=== PATIENT | female | born 1980 | race Caucasian/White ===

== ENCOUNTER 2024-09-26 14:51 | Outpatient (AMB) | payer OTHER, SELFPAY ==
--- NOTE | 2024-09-26 15:00 | HO.NEPHOV_ITS ---
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 She has H/O recurrent stones for close to 25 years. She had seen Urology and had undergone 24 hour urine collection as well as stone analysis. She recently thought she had a renal stone presented with flank pain which was radiating to right groin. Her UA at that time apparently showed blood in the urine as well as crystals. She was also diagnosed with UTI at that time and was treated with antibiotics. CT done during the ER visit showed minimally increase in size of a simple appearing right upper pole renal cyst. It also showed 2 mm non obstructing renal stone, mild splenomegaly as well as 3.3 cm simple right ovarian cyst. Her second daughter who is 18 years of age is also having cystine stone. She never has taken tiopronin. She did not have any active complaints at the time of this office visit [facility] Medical History (Updated 09/26/24 @ 15:20 by Neil Stanford MD) Throat cancer Nephrolithiasis Family History (Updated 09/26/24 @ 15:01 by Anastasiya Hastings MA) Father Heart disease Social History (Updated 09/26/24 @ 15:01 by Anastasiya Hastings MA) Alcohol intake: current Comment: Occasionally Patient Tobacco Use Status: Former Tobacco user Review of Systems Const All systems reviewed & are unremarkable except as noted in HPI and below Physical Exam Vital Signs: Last Vital Signs Pulse 74 09/26/24 15:03 BP 110/70 09/26/24 15:03 Pulse Ox 97 09/26/24 15:03 Oxygen Delivery Method Room Air 09/26/24 15:03 BMI result Body Mass Index 26.8 Const General: comfortable and no acute distress Orientation/consciousness: patient oriented x3 HEENT Head: Yes normocephalic Mouth: Normal oral and palatal mucosa present Eyes EOM: EOMs intact bilaterally Neck Neck: Yes supple Resp Auscultation: clear to auscultation bilaterally Cardio Jugular venous distension: no JVD Rate: regular rate GI Palpation (GI): Soft to palpation Auscultation: normal bowel sounds General: Yes no CVA tenderness Back/Spine/Pelvis Back: no CVA tenderness Skin General skin exam: no rashes or lesions noted Neuro General: patient oriented x3 and moves all extremities Extrem General: Yes no pedal edema Results Reviewed Nephrology Results: No Data to Display Assessment & Plan Assessment & Plan (1) Nephrolithiasis: Code(s): N20.0 - Calculus of kidney Category: Medical Plan She has recurrent cystine stones for last 25 years. Her daughter also has the sa me issue. She said that she had stone analysis as well as 24 hour urine studies. I ordered Urinary cystine excretion quantification in a 24-hour urine collection. (The normal rate of cystine excretion is 30 mg/day (0.13 mmol/day); by comparison, patients with cystinuria generally excrete more than 400 mg/day (1.7 mmol/day), and some excrete as much as 3600 mg/day (15 mmol/day). Cystine solubility increases by up to threefold in an alkaline urine but only if the urine pH is greater than 7. This degree of urinary alkalinization may require up to 3 to 4 mEq/kg per day of?potassium citrate taken in three or four divided doses as needed to achieve [id number]-fzhgs alkalization. In adults, starting doses of 20 mEq three times daily, doses should be adjusted (up to 3 to 4 mEq/kg per day) to maintain a target urine pH of greater than 7. To maintain an alkaline urine pH overnight, the last dose of?potassium citrate should be taken at bedtime. I have requested stone analysis results from the past. She is likely candidate for tiopronin in the future. If initiated, we shall check complete blood count, liver function tests, and spot urine qyeeamu-eb-wayrvvltrh ratio monitoring once within three months of initiating therapy, then every six months for one to two years, and at least yearly thereafter. All these have been explained in detail. Answered all questions. Further management is pending evolving data Orders: Orders Cystine 24Hr Urine Today N20.0 - Calculus of kidney Coding Level of Care Code New Pt Level 4 (18271) Diagnoses Nephrolithiasis N20.0
[2024-09-26 15:03] VITALS: BP 110/70; PULSE 74; O2SAT 97; BMI 26.8
--- OUTSIDE RECORDS SUMMARY | 2024-09-26 18:33 | XMS_ITS ---
Author Organization [facility] [employer] [facility] Address [address] [address] Care Team Providers Care Film Mounter Name Role Phone RAMANA HERNÁNDEZ Unavailable [phone] REASON FOR VISIT Annual ERGONOMICS TECHNICIAN Physical Encounters Encounter Location Date Provider Diagnosis [facility] [address] [address] 09/08/2023 RAMANA HERNÁNDEZ Encounter for gynecological examination (general) (routine) without abnormal findings Z01.419 ; Encounter for screening mammogram for malignant neoplasm of breast Z12.31 and Encounter for screening for infections with a predominantly sexual mode of transmission Z11.3 Assessments Encounter Date Diagnosis (ICD Code) Assessment Notes Treatment Notes Treatment Clinical Notes Section Notes 09/08/2023 Encounter for gynecological examination (general) (routine) without abnormal findings (ICD-10 - Z01.419) Discussed cervical cancer screening with either cytology alone every 3 years or high risk HPV co-testing every 5 years as per ASCCP guidelines. Advised continued annual pelvic exams. Patient encouraged to increase her level of exercise. SBE technique encouraged/tau ght. Patient reminded when annual mammogram is due. 09/08/2023 Encounter for screening mammogram for malignant neoplasm of breast (ICD-10 - Z12.31) 09/08/2023 Encounter for screening for infections with a predominantly sexual mode of transmission (ICD-10 - Z11.3) Plan Of Treatment Treatment Notes Assessment Notes Encounter for gynecological examination (general) (routine) without abnormal findings Discussed cervical cancer screening with either cytology alone every 3 years or high risk HPV co-testing every 5 years as per ASCCP guidelines. Advised continued annual pelvic exams. Patient encouraged to increase her level of exercise. SBE technique encouraged/taught. Patient reminded when annual mammogram is due. Pending Test Test Name Order Date MM Digital Screening Mammogram 3D 2023 Next Appt Details Follow Up: 1 Year, Reason: Y early Development Technologist Exam Progress Notes * WENDY GEORGEDOB:1980 ( 44 yo F)Acc No.[id number]:09/08/2023 Progress Note Patient:WENDY BANERJEE Provider:?RAMANA HERNÁNDEZ MD :1980???Age:43 Y???Sex:Female D ate:09/08/2023 Address:[address] [place], [place] [id number] Subjective: * Chief Complaints: * ???1. Annual ERGONOMICS TECHNICIAN Physical. * HPI: ???Constitutional:? 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 She is new to this practice, having received previous leather production worker care . She has been in state of health since her last exam. She has the following concerns: . Relationship status: for years. She is sexually active. Sexual partner(s): male. She does wish to have STI testing. Menses: Contraception: She does report vaginal dryness. She does have hot flashes/night sweats. The patient has had an abnormal pap smear within the last 5 years. Her most recent pap smear was . She has been diagnosed with breast cancer. She does have a family history of breast cancer. Her last mammogram was . The patient does exercise. She exercises x days/week by . * ROS:?Annual Development Technologist Exam ROS:?Bowel habit changes?denies.?Bladder symptoms?denies.?Vaginal discharge, unusual?denies.?Vaginal itch or odor?denies.?weight or appetite changes?denies.?Chest pains, SOB?denies.?depression?denies.?Breast:?Denies?Breast lump.?Denies?Nipple discharge.?Hematology:?Denies?Swollen glands.?Skin:?Patient denies?changing moles.?Psychiatric:?Denies?Anxiety.? * Medical History:?Malignant n eoplasm of tonsil, unspecified, Single subsegmental pulmonary embolism without acute cor pulmonale, Opioid abuse, in remission, Obsessive-compulsive disorder, unspecified, Malignant neoplasm of tonsil, unspecified. Objective: * Vitals:? * Examination: ???General Examination: ?GENERAL APPEARANCE:?in no acute distress, well developed, well nourished, executive vice president present in room.?HEAD:?normocephalic, atraumatic.?NECK/THYROID:?neck supple, full range of motion, thyroid normal.?LYMPH NODES:?no axillary or supraclavicular adenopathy.?SKIN:? normal, good turgor, no rashes, no suspicious lesions.?BREASTS:? normal, no dimpling, no discharge, no drainage, no masses palpable bilaterally, nontender.?ABDOMEN:? soft, non-tender, non distended without masses or hepatosplenomegay.?RECTAL:? normal tone, no masses palpable.?BACK:? no costovertebral angle tenderness.?FEMALE GENITOURINARY:?Vulva without lesions or masses, vagina pink without abnormal discharge, lesions or masses, cervix appears normal and is not tender to palpation, uterus is normal size, mobile, nontender and anteverted, ovaries are not palpable.?NEUROLOGIC:? alert and oriented, gait normal.?PSYCH:? alert, oriented, cognitive function intact, cooperative with exam, good eye contact, mood/affect full range, speech clear.? Assessment: * Assessment: 1.?Encounter for gynecologic al examination (general) (routine) without abnormal findings - Z01.419 (Primary)???2.?Encounter for screening mammogram for malignant neoplasm of breast - Z12.31???3.?Encounter for screening for infections with a predominantly sexual mode of transmission - Z11.3??? Plan: * Treatment: 2.?Encounter for screening m ammogram for malignant neoplasm of breast?Imaging: MM Digital Screening Mammogram 3D * Follow Up:?1 Year (Reason: Y early Development Technologist Exam) * Images: Billing Information: * Visit Code:? 32225 Preventive Care New Pt. Age 40-64. * Procedure Codes:? 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 She is new to this practice, having received previous leather production worker care . She has been in state of health since her last exam. She has the following concerns: . Relationship status: for years. She is sexually active. Sexual partner(s): male. She does wish to have STI testing. Menses: Contraception: She does report vaginal dryness. She does have hot flashes/night sweats. The patient has had an abnormal pap smear within the last 5 years. Her most recent pap smear was . She has been diagnosed with breast cancer. She does have a family history of breast cancer. Her last mammogram was . The patient does exercise. She exercises x days/week by . Examination Category Sub-Category Detail Notes Category Not es General Examination GENERAL APPEARANCE: in no ac kb distress, well developed, well nourished, executive vice president present in room HEAD: normocephalic, atrau matic NECK/THYROID: neck supple, full ra nge of motion, thyroid normal ABDOMEN: soft, non-tender, no n distended without masses or hepatosplenomegay NEUROLOGIC: alert and oriented, gait normal SKIN: normal, good turgor, no rashes, no suspicious lesions BACK: no costovertebral an gle tenderness BREASTS: normal, no dimpling, no discharge, no drainage, no masses palpable bilaterally, nontender LYMPH NODES: no axillary or supra clavicular adenopathy RECTAL: normal tone, no mass es palpable PSYCH: alert, oriented, cog nitive function intact, cooperative with exam, good eye contact, mood/affect full range, speech clear FEMALE GENITOURINARY: Vulva without lesi ons or masses, vagina pink without abnormal discharge, lesions or masses, cervix appears normal and is not tender to palpation, uterus is normal size, mobile, nontender and anteverted, ovaries are not palpable
--- OUTSIDE RECORDS SUMMARY | 2024-09-26 18:33 | XMS_ITS | Clinical Summary ---
Author Organization [facility] Address [address] [place] [address] Care Team Providers Care Professor Of Nursing Name Role Phone Unavailable Primary Care Provider Unavailabl e Source Comments PLEASE NOTE, if this patient is a minor, it may be UNLAWFUL to discuss sensitive information that is contained in these records (such as FAMILY PLANNING, MENTAL HEALTH or SUBSTANCE ABUSE) with the minor patient's parent or other person without the patient's specific authorization.[facility] Allergies Active Allergy Reactions Criticality Noted Date Comments Metoclopramide Hcl 08/17/2022 Medications gabapentin (NEURONTIN) 100 mg capsule 1 CAPSULE BY MOUTH 3 TIMES A DAY, TAKE WITH 300MG CAPSULE DIRECTED 06/16/2022 Active buprenorphine-n aloxone (SUBOXONE) 8-[address] under the tongue 07/23/2020 Active ELIQUIS 5 mg tab 05/31/2022 Active pilocarpine HCl (SALAGEN) 5 mg tablet Take 5 mg by mouth 04/26/2022 Active Active Problems Problem Noted Date Diagnosed Date Carcinoma of tonsil ([facility]) 08/17/2022 History of drug abuse ([facility]) 08/17/2022 Social History Tobacco Use Types Packs/Day Years Used Date Smoking Tobacco: Never Smokeless Tobacco: Never Tobacco Cessation:Counseling Given: Not Answered Social Connections Answer Date Recorded Connectedness 0 03/16/2024 Financial Resource Strain Answer Date R ecorded Financial Resource Strain 0 2022 Stress Answer Date Recorded Stress 0 08/17/2022 Physical Activity Answer Date Recorded Physical Activity 0 08/17/2022 Food Insecurity Answer Date Recorded Food 0 03/28/2024 Transportation Needs Answer Date Record ed Transportation 0 08/17/2022 Housing Stability Answer Date Recorded Housing 0 08/17/2022 Safety and Environment Answer Date Edin rded Safety 0 08/17/2022 Utilities Answer Date Recorded Utilities 0 08/17/2022 Employment Answer Date Recorded Stress 0 03/16/2024 Comments Unknown Sex and Gender Information Value Date Recorded Sex Assigned at Not on file Legal Sex Female 12:28 PM PDT Gender Identity Not on file Sexual Orientation Not on file Last Filed Vital Signs Vital Sign Reading Time Taken Comments Blood Pressure 115/73 10/19/2022 3:08 PM EDT Pulse 73 10/19/2022 3:08 PM EDT Temperature - - Respiratory Rate - - Oxygen Saturation - - Inhaled Oxygen Concentration - - Weight - - Height - - Body Mass Index - - Plan of Treatment Health Maintenance Due Date Last Done Comments Diabetes Screening 1982 HPV Screening 1982 Hepatitis C Screening 1982 Lipid Screening 1982 Pap + HPV 1982 Tobacco Screening 1982 HIV Screening 1997 Relationship Safety Screening/Counseling 1997 Imm-DTaP/Tdap/Td (1 - Tdap) 2001 Imm-Hepatitis B (1 of 3 - 19+ 3-dose series) 1 Cervical Cancer Screening 2003 Pap Smear 2003 Breast Cancer Screening (Mammogram) 2022 Dental Examination 08/19/2023 08/17/2022 Hypertension Screening (#1) 10/19/2023 Czh-PCNIM-60 ( season) 2024 Imm-Influenza (#1) 2024 05/28/2021 Alcohol and Drug Screen 07/03/2024 Depression Annual Screen 07/03/2024 Dental FMX/Pano 08/19/2027 08/17/2022 Cervical Ablation/Cold-Knife Conization Discontinued Cervical Cryotherapy Discontinued Colposcopy Discontinued Endometrial Biopsy Discontinued Excision/Leep Discontinued HPV Genotyping Discontinued Vaginal Pap Discontinued Vulvoscopy Discontinued Procedures Procedure Name Priority Date/Time Associated Diagnosis Comments PANORAMIC RADIOGRAPHIC IMAGE Routine 08/17/2022 11:00 AM EST Encounter for dental examination Full COMP ORAL EVALUATION - NEW/ESTABLISHED PATIENT Routine 08/17/2022 11:00 AM EST Encounter for dental examination from Last 3 Months or Most Recently Relevant to Health Maintenance Insurance [place] MED[place] DENT[place]
--- OUTSIDE RECORDS SUMMARY | 2024-09-26 18:33 | XMS_ITS | Patient Health Record ---
Author Organization [facility] [facility] Address [address] [place] [address] Care Team Providers Care Varnisher Apprentice Name Role Phone RAMANA HERNÁNDEZ Unavailable [phone] Reason For Referral No Information Problems Problem Type SNOMED Code ICD Code Onset Dates Problem Status W/U Status Risk Notes Problem Malignant tumor of tonsil (616964701) Malignant neoplasm of tonsil, unspecified (C09.9) Active confirmed Problem Obsessive-compul sive disorder (667867635) Obsessive-compul sive disorder, unspecified (F42.9) Active confirmed Problem Nondependent opioid abuse in remission (034032885) Opioid abuse, in remission (F11.11) Active confirmed Problem Single subsegmental pulmonary embolism without acute cor pulmonale (I26.93) Active confirmed Plan Of Treatment Pending Test Test Name Order Date MM Digital Screening Mammogram 3D 2022 MM Digital Screening Mammogram 3D 2023 Insurance Providers Payer Name Payer Address Payer Phone Subscriber Number Group Number Insured Name Patient Relationship to Insured Coverage Start Date Coverage End Date [facility] [address] [place] [address] DORISGAIL Self - patient is the insured Medical (General) History Medical History History ICD Code Malignant neoplasm of tonsil, unspecifie d C09.9 Single subsegmental pulmonary embolism w ithout acute cor pulmonale I26.93 Opioid abuse, in remission F11.11 Obsessive-compulsive disorder, unspecifi ed F42.9 Malignant neoplasm of tonsil, unspecifie d C09.9 Surgical History Surgery Date(Month/Year) Gastric Band Tonsillectomy (Left squamous cell carcin alma delia, HPV positive) 06/2021 EGD 08/2022 Hospitalization History Reason Date(Month/Year) Right pulmonary embolus 07/2021
--- OUTSIDE RECORDS SUMMARY | 2024-09-26 18:33 | XMS_ITS | Encounter Summary ---
Author Organization [facility] Address [address] [place] [address] Care Team Providers Care Director Of Accounting Name Role Phone Antonio Myers MD Primary Care Provider [phone] Reason for Referral * Imaging (Routine) - Authorized Specialty Diagnoses / Procedures Referred By Antonio vera Referred To Contact Radiology Diagnoses Encounter for screening mammogram for malignant neoplasm of breast Procedures MG Mammo Digital Screening w Antonio Morrison MD [address] [address] Phone: tel: fax: [address] [address] Phone: tel: Referral ID Status Reason Start Date Expiration Date V isits Requested Visits Authorized [id number] Authorized 08/27/2024 08/27/2025 1 1 Reason for Visit * Imaging (Routine) - Authorized Specialty Diagnoses / Procedures Referred By Antonio vera Referred To Contact Radiology Diagnoses Encounter for screening mammogram for malignant neoplasm of breast Procedures MG Mammo Digital Screening w Antonio Morrison MD 175 [facility] [address] [place] [address] Phone: tel: fax: [address] [address] Phone: tel: Referral ID Status Reason Start Date Expiration Date V isits Requested Visits Authorized [id number] Authorized 08/27/2024 08/27/2025 1 1 Encounter Details Date Type Department Care Team (Latest Contact Info) Description 09/23/2024 7:58 AM EDT - 09/23/2024 11:59 PM EDT [facility] [address] [phone] Encounter for screening mammogram for malignant neoplasm of breast Discharge Disposition: Home or Self Care Social History Tobacco Use Types Packs/Day Years Used Date Smoking Tobacco: Never Assessed Comments No Sex and Gender Information Value Date Recorded Sex Assigned at Not on file Legal Sex Female 2:44 PM EST Gender Identity Female 08/28/2024 10:26 AM EST Sexual Orientation Not on file documented as of this encounter Last Filed Vital Signs Vital Sign Reading Time Taken Comments Blood Pressure - - Pulse - - Temperature - - Respiratory Rate - - Oxygen Saturation - - Inhaled Oxygen Concentration - - Weight 62.1 kg (137 lb) 09/23/2024 8:08 AM EDT Height 160 cm (5' 3 ) 09/23/2024 8:08 AM EDT Body Mass Index 24.27 09/23/2024 8:08 AM EDT documented in this encounter Discharge Disposition Disposition Code Departure Means Destination Home or Self Care documented in this encounter Plan of Treatment Not on file documented as of this encounter Procedures Procedure Name Priority Date/Time Associated Diagnosis Comments MG MAMMO DIGITAL SCREENING W ALEXANDRO BILAT Routine 09/23/2024 8:20 AM EDT Encounter for screening mammogram for malignant neoplasm of breast documented in this encounter Results * MG Mammo Digital Screening w Alexandro bilat (09/23/2024 8:20 AM EDT) Anatomical Region Laterality Modality Breast Bilateral Mammography 09/24/2024 9:49 AM EDT Impressions 09/24/2024 9:52 AM EDT No mammographic evidence of malignancy. A negative mammogram in the presence of a clinically suspicious palpable abnormality does not preclude the possibility of malignancy or alter the indications for biopsy. PQRI CPT II 3342F Code 72538, 08695 PQRI 225 CPT II 7025F TISSUE DENSITY: There are scattered areas of fibroglandular density. (BI-RADS category B) IMPRESSION: Benign. BI-RADS CATEGORY: 1 - NEGATIVE RECOMMENDATION: Screening bilateral mammogram is recommended in 1 year. Mammo Location: [facility], [address] [place] [address] -------- FINAL REPORT -------- Dictated By: Yehuda Elaine Dictated Date: 09/24/2024 09:49 ET Assigned Physician: Yehuda Elaine Reviewed and Electronically Signed By: Yehuda Elaine Signed Date: 09/24/2024 09:52 ET Workstation ID: [id number] Transcribed By: Self Edit Transcribed Date: 09/24/2024 09:49 ET Narrative 09/24/2024 9:52 AM EDT CLINICAL: The patient is a 44 years Female presenting for baseline screening mammography. COMPARISON: None ?? TECHNIQUE: Full-field digital mammography of the breasts bilaterally consisting of tomosynthesis in MLO and CC projection is performed in the [employer] 2000-D unit. ??Computer aided detection utilizing the iCAD system was utilized. FINDINGS: The breasts are seen to be composed of a combination of fatty and fibroglandular elements. ??A few scattered benign calcifications are noted bilaterally. ??There is no suspicious cluster of microcalcifications, mass, or area of architectural distortion. There is no skin thickening or nipple retraction. Procedure Note Yehuda Elaine MD - 09/24/2024 CLINICAL: The patient is a 44 years Female presenting for baselinescreening mammography. COMPARISON: None TECHNIQUE: Full-field digital mammography of the breasts bilaterallyconsisting of tomosynthesis in MLO and CC projection is performed in the[employer] 2000-D unit. Computer aided detection utilizing the iCADsystem was utilized. FINDINGS: The breasts are seen to be composed of a combination of fattyand fibroglandular elements. A few scattered benign calcifications arenoted bilaterally. There is no suspicious cluster of microcalcifications,mass, or area of architectural distortion. There is no skin thickening ornipple retraction. IMPRESSION: No mammographic evidence of malignancy. A negative mammogram in the presence of a clinically suspicious palpableabnormality does not preclude the possibility of malignancy or alter theindications for biopsy. PQRI CPT II 3342F Code 09174, 80044 PQRI 225 CPT II 7025F TISSUE DENSITY: There are scattered areas of fibroglandular density.(BI-RADS category B) IMPRESSION: Benign. BI-RADS CATEGORY: 1 - NEGATIVE RECOMMENDATION: Screening bilateral mammogram is recommended in 1 year. Mammo Location: [facility], [facility], [address] [place] [address] -------- FINAL REPORT -------- Dictated By: Yehuda Elaine Dictated Date: 09/24/2024 09:49 ET Assigned Physician: Yehuda Elaine Reviewed and Electronically Signed By: Yehuda Elaine Signed Date: 09/24/2024 09:52 ET Workstation ID: [id number] Transcribed By: Self Edit Transcribed Date: 09/24/2024 09:49 ET Antonio Myers MD IMG BI PROCEDURES Final Result documented in this encounter Visit Diagnoses Diagnosis Encounter for screening mammogram for malignant neoplasm of breast documented in this encounter Care Teams Director Of Accounting Relationship Specialty Start Date End Date Antonio Myers MD [address] [place] [address] PCP - General Internal Medicine 08/27/24 documented as of this encounter
--- OUTSIDE RECORDS SUMMARY | 2024-09-26 18:33 | XMS_ITS | Encounter Summary ---
Author Organization [facility] Address [address] [place] [address] Care Team Providers Care Steam Crane Operator Name Role Phone Antonio Myers MD Primary Care Provider [phone] Reason for Visit * Reason Onset Date Comments Referral 09/19/2024 Encounter Details Date Type Department Care Team ([facility] st Contact Info) Description 09/19/2024 Telephone Internal Medicine - [place] 175 [facility] [address] [place] [phone] Antonio Myers MD 175 [facility] [address] [place] [address] Referral Social History Tobacco Use Types Packs/Day Years Used Date Smoking Tobacco: Never Assessed Comments Unknown Sex and Gender Information Value Date Recorded Sex Assigned at Not on file Legal Sex Female 2:44 PM EST Gender Identity Female 08/28/2024 10:26 AM EST Sexual Orientation Not on file documented as of this encounter Progress Notes * Radha Craig MA - 09/25/2024 10:24 AM EDT Documents were printed and faxed * Luz Brandon - 09/19/2024 12:51 PM EDT Please fax Demographic Referral from provider Copy of insurance Last office note TO: Dr. Neil Stanfrod [facility] [address] [place], [place] FAX: [phone] documented in this encounter Plan of Treatment Not on file documented as of this encounter Visit Diagnoses Not on filedocumented in this encounter Care Teams Steam Crane Operator Relationship Specialty Start Date End Date Antonio Myers MD [address] [place] [address] PCP - General Internal Medicine 08/27/24 documented as of this encounter
--- OUTSIDE RECORDS SUMMARY | 2024-09-26 18:33 | XMS_ITS | Encounter Summary ---
Author Organization [facility] Address [address] [place] [address] Care Team Providers Care Strategies Analyst Name Role Phone Antonio Myers MD Primary Care Provider [phone] Reason for Referral * Imaging (Routine) - Authorized Specialty Diagnoses / Procedures Referred By Antonio vera Referred To Contact Radiology Diagnoses Encounter for screening mammogram for malignant neoplasm of breast Procedures MG Mammo Digital Screening w Alexandro bilat Antonio Myers MD 175 [place] [address] Phone: tel: fax: [address] [phone] Phone: tel: Referral ID Status Reason Start Date Expiration Date V isits Requested Visits Authorized [id number] Authorized 08/27/2024 08/27/2025 1 1 * Imaging (Routine) - Authorized Specialty Diagnoses / Procedures Referred By Antonio vera Referred To Contact Radiology Diagnoses Encounter for osteoporosis screening in asymptomatic postmenopausal patient Procedures BD Bone Density DXA Axial w Vertebral Fx Asmt Antonio Myers MD 175 [facility] [address] [place] [address] Phone: tel: fax: [address] [phone] Phone: tel: Referral ID Status Reason Start Date Expiration Date V isits Requested Visits Authorized [id number] Authorized 08/27/2024 08/27/2025 1 1 Reason for Visit * Reason Onset Date Comments Results 08/27/2024 Encounter Details Date Type Department Care Team ([facility] Contact Info) Description 08/27/2024 Telephone Internal Medicine - [place] 175 [facility] [address] [place] [phone] Antonio Myers MD 175 [facility] [address] [place] [address] Results Social History Tobacco Use Types Packs/Day Years Used Date Smoking Tobacco: Never Assessed Comments Unknown Sex and Gender Information Value Date Recorded Sex Assigned at Not on file Legal Sex Female 2:44 PM EST Gender Identity Female 08/28/2024 10:26 AM EST Sexual Orientation Not on file documented as of this encounter Progress Notes * Antonio Myers MD - 08/27/2024 3:09 PM EST Mammogram and bone density ordered * Morales Benítez MA - 08/27/2024 1:[address] Myers please advise request below * Luz Brandon - 08/27/2024 9:18 AM EST Patient requests order to be placed : Baseline mammogram Bone density documented in this encounter Plan of Treatment Scheduled Orders Name Type Priority Associated Diagnoses Orde r Schedule BD Bone Density DXA Axial w Vertebral Fx Asmt Imaging Routine Encounter for osteoporosis screening in asymptomatic postmenopausal patient 1 Occurrences starting 08/27/2024 until 08/27/2025 documented as of this encounter Results * MG Mammo Digital [...] for biopsy. PQRI CPT II 3342F Code 75471, 96839 PQRI 225 CPT II 7025F TISSUE DENSITY: There are scattered areas of fibroglandular density. (BI-RADS category B) IMPRESSION: Benign. BI-RADS CATEGORY: 1 - NEGATIVE RECOMMENDATION: Screening bilateral mammogram is recommended in 1 year. Mammo Location: [facility], [facility], [address] [place] [address] -------- FINAL REPORT -------- Dictated By: Yehuda Elaine Dictated Date: 09/24/2024 09:49 ET Assigned Physician: Yehuda Elaine Reviewed and Electronically Signed By: Yehuda Elaine Signed Date: 09/24/2024 09:52 ET Workstation ID: [id number] Transcribed By: Self Edit Transcribed Date: 09/24/2024 09:49 ET Narrative 09/24/2024 9:52 AM EDT CLINICAL: The patient is a 44 years Female presenting for baseline screening mammography. COMPARISON: None ?? TECHNIQUE: Full-field digital mammography of the breasts bilaterally consisting of tomosynthesis in MLO and CC projection is performed in the [employer] 2000-D unit. ??Computer aided detection utilizing the [...] MLO and CC projection is performed in the[employer] 2000-D unit. Computer aided detection utilizing the [...] for biopsy. PQRI CPT II 3342F Code 42198, 64440 PQRI 225 CPT II 7025F TISSUE DENSITY: There are scattered areas of fibroglandular density.(BI-RADS category B) IMPRESSION: Benign. BI-RADS CATEGORY: 1 - NEGATIVE RECOMMENDATION: Screening bilateral mammogram is recommended in 1 year. Mammo Location: [facility], [facility], [address] [place] [address] -------- FINAL REPORT -------- Dictated By: Yehuda Elaine Dictated Date: 09/24/2024 09:49 ET Assigned Physician: Yehuda Elaine Reviewed and Electronically Signed By: Yehuda Elaine Signed Date: 09/24/2024 09:52 ET Workstation ID: [id number] Transcribed By: Self Edit Transcribed Date: 09/24/2024 09:49 ET Antonio Myers MD IMG BI PROCEDURES Final Result documented in this encounter Visit Diagnoses Diagnosis Adult general medical examination- Primary Unspecified general medical examination History of throat cancer Encounter for osteoporosis screening in asymptomatic postmenopausal patient Encounter for screening mammogram for malignant neoplasm of breast Encounter for screening mammogram for malignant neoplasm of breast documented in this encounter Care Teams Strategies Analyst Relationship Specialty Start Date End Date Antonio Myers MD [address] [place] [address] PCP - General Internal Medicine 08/27/24 documented as of this encounter
--- OUTSIDE RECORDS SUMMARY | 2024-09-26 18:33 | XMS_ITS | Clinical Summary ---
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 Max Daily Amount: 1 mg 30 tablet 05/13/20 24 025 Discontinued predniSONE (DELTASONE) 10 mg tablet Take 2 tabs PO daily for 3 days then 1 tab PO daily for 4 days 10 tablet 07/30/19 25 025 Discontinued amoxicillin-cl avulanate (AUGMENTIN) 875-125 mg per tablet Take 1 tablet by mouth every 12 (twelve) hours for 10 days. 20 each 09/06/19 25 025 oxyCODONE-acet aminophen (PERCOCET) 5-325 mg per tablet Take 1 tablet by mouth every 8 (eight) hours if needed for severe pain for up to 5 days. Max Daily Amount: 3 tablets 15 tablet 09/07/19 25 025 Discontinued oxyCODONE-acet aminophen (PERCOCET) 5-325 mg per tablet Take 1 tablet by mouth every 8 (eight) hours if needed for severe pain for up to 5 days. Max Daily Amount: 3 tablets 15 tablet 09/07/19 25 025 oxyCODONE (ROXICODONE) 5 mg immediate release tablet Take 1 tablet (5 mg total) by mouth every 8 (eight) hours if needed for severe pain for up to 3 days. Max Daily Amount: 15 mg 10 tablet 09/13/19 25 025 Discontinued oxyCODONE (ROXICODONE) 5 mg immediate release tablet Take 1 tablet (5 mg total) by mouth every 8 (eight) hours if needed for severe pain for up to 3 days. Max Daily Amount: 15 mg 10 tablet 09/13/19 25 025 Discontinued(Re order) oxyCODONE (ROXICODONE) 5 mg immediate release tablet Take 1 tablet (5 mg total) by mouth every 8 (eight) hours if needed for severe pain for up to 3 days. Max Daily Amount: 15 mg 10 tablet 09/13/19 25 025 Encounters Date Type Department Care Team Description 09/23/2024 7:58 AM EDT - 09/23/2024 11:59 PM EDT [facility] [address] [phone] Encounter for screening mammogram for malignant neoplasm of breast Discharge Disposition: Home or Self Care 09/19/2024 Telephone Internal Medicine [address] [phone] Antonio Myers MD 09/19/2024 Telephone Internal Medicine [address] [phone] Antonio Myers MD Referral 08/27/2024 [facility] [address] [phone] Antonio Myers MD Results from Last 3 Months Social History Tobacco Use Types Packs/Day Years Used Date Smoking Tobacco: Never Assessed Comments No Sex and Gender Information Value Date Recorded Sex Assigned at Not on file Legal Sex Female 2:44 PM EST Gender Identity Female 08/28/2024 10:26 AM EST Sexual Orientation Not on file Obstetrics History Para Term AB IAB SAB Ectopic Multiple Livin g Live Births 2 Last Filed Vital Signs Vital Sign Reading Time Taken Comments Blood Pressure - - Pulse - - Temperature - - Respiratory Rate - - Oxygen Saturation - - Inhaled Oxygen Concentration - - Weight 62.1 kg (137 lb) 09/23/2024 8:08 AM EDT Height 160 cm (5' 3 ) 09/23/2024 8:08 AM EDT Body Mass Index 24.27 09/23/2024 8:08 AM EDT Plan of Treatment Health Maintenance Due Date Last Done Comments DTaP,Tdap,and Td Vaccines (1 - Tdap) 2001 Cervical Cancer Screening: P ap Smear 2003 Hepatitis B Vaccines (2 of 3 - 19+ 3-dose series) 01/06/2017 12/09/2016 Pneumococcal Vaccine: Pediatrics (0 to 5 Years) and At-Risk Patients (6 to 64 Years) (2 of 2 - PPSV23) 10/07/2021 08/12/2021 Cholesterol Screening (Lipid Panel) 06/01/2022 Depression Screening 06/01/2022 HIV Screening 06/01/2022 Hepatitis C Screening 06/01/2022 Social Influencers of Health Screening 06/01/2022 COVID-19 Vaccine (4 - 2023-2 5 season) 2024 07/17/2021, 10/19/2020, 09/28/2020 Influenza Vaccine (#1) 2024 05/28/2021 Breast Cancer Screening 09/23/2026 09/23/2024 MMR Vaccines Aged Out 12/09/2016 No longer eligi ble based on patient's age to complete this topic HIB Vaccines Aged Out No longer eligi ble based on patient's age to complete this topic HPV Vaccines Aged Out No longer eligi ble based on patient's age to complete this topic Hepatitis A Vaccines Aged Out No long er eligible based on patient's age to complete this topic IPV Vaccines Aged Out No longer eligi ble based on patient's age to complete this topic Meningococcal ACWY Vaccine Aged Out N o longer eligible based on patient's age to complete this topic Meningococcal B Vacine Aged Out No lo nger eligible based on patient's age to complete this topic RSV Immunization Patients Under 20 months Aged Out No longer eligible b ased on patient's age to complete this topic Varicella Vaccines Aged Out No longer eligible based on patient's age to complete this topic Procedures Procedure Name Priority Date/Time Associated Diagnosis Comments MG MAMMO DIGITAL SCREENING W ALEXANDRO BILAT Routine 09/23/2024 8:20 AM EDT Encounter for screening mammogram for malignant neoplasm of breast [facility] URINE CULTURE TUBE Routine 09/05/2024 3:09 PM EST Urinary tract infection without hematuria, site unspecified URINALYSIS WITH REFLEX MICROSCOPIC AND CULTURE Routine 09/05/2024 3:09 PM EST Urinary tract infection without hematuria, site unspecified URINALYSIS WITH REFLEX MICROSCOPIC AND CULTURE Routine 09/05/2024 3:09 PM EST Urinary tract infection without hematuria, site unspecified CULTURE URINE Routine 09/05/2024 3:09 PM EST Urinary tract infection without hematuria, site unspecified from Last 3 Months Results * MG Mammo Digital Screening w [...] for biopsy. PQRI CPT II 3342F Code 59750, 31670 PQRI 225 CPT II 7025F TISSUE DENSITY: There are scattered areas of fibroglandular density. (BI-RADS category B) IMPRESSION: Benign. BI-RADS CATEGORY: 1 - NEGATIVE RECOMMENDATION: Screening bilateral mammogram is recommended in 1 year. Mammo Location: [facility], [address] [place] [address] -------- FINAL REPORT -------- Dictated By: Yehuda Elaine Dictated Date: 09/24/2024 09:49 ET Assigned Physician: Yehuda Elaine Reviewed and Electronically Signed By: Yehuda Elaine Signed Date: 09/24/2024 09:52 ET Workstation ID: [id number] Transcribed By: Self Edit Transcribed Date: 09/24/2024 09:49 ET Narrative 09/24/2024 9:52 AM EDT CLINICAL: The patient is a 44 years Female presenting for baseline screening mammography. COMPARISON: None ?? TECHNIQUE: Full-field digital mammography of the breasts bilaterally consisting of tomosynthesis in MLO and CC projection is performed in the [employer] Pencil[employer]he 2000-D unit. ??Computer aided detection utilizing the [...] MLO and CC projection is performed in the[employer] Senographe 2000-D unit. Computer aided detection utilizing the [...] for biopsy. PQRI CPT II 3342F Code 94193, 84108 PQRI 225 CPT II 7025F TISSUE DENSITY: There are scattered areas of fibroglandular density.(BI-RADS category B) IMPRESSION: Benign. BI-RADS CATEGORY: 1 - NEGATIVE RECOMMENDATION: Screening bilateral mammogram is recommended in 1 year. Mammo Location: [facility], [address] [place] [id number] -------- FINAL REPORT -------- Dictated By: Yehuda Elaine Dictated Date: 09/24/2024 09:49 ET Assigned Physician: Yehuda Elaine Reviewed and Electronically Signed By: Yehuda Elaine Signed Date: 09/24/2024 09:52 ET Workstation ID: [id number] Transcribed By: Self Edit Transcribed Date: 09/24/2024 09:49 ET Antonio Myers MD IM BI PROCEDURES Final Result * (ABNORMAL) Urinalysis with reflex microscopic and culture (09/05/2024 3:09 PM EST) Specific [place] Urine 1.029 1.003 - 1.030 LAB URINALYSIS - AUTOMATED METHOD 09/05/2024 4:58 PM [facility] pH, Urine 5.5 5.0 - 8.0 pH LAB URINALYSIS - AUTOMATED METHOD 09/05/2024 4:58 PM [facility] Leukocytes, Urine Large(A) Negative LAB URINALYSIS - AUTOMATED METHOD 09/05/2024 4:58 PM [facility] Nitrite, Urine Positive(A) Negative LAB URINALYSIS - AUTOMATED METHOD 09/05/2024 4:58 PM [facility] Protein, Urine 30(A) <=Trace mg/dL LAB URINALYSIS - AUTOMATED METHOD 09/05/2024 4:58 PM [facility] Glucose, Urine Negative Negative mg/dL LAB URINALYSIS - AUTOMATED METHOD 09/05/2024 4:58 PM [facility] Ketones, Urine Trace(A) Negative mg/dL LAB URINALYSIS - AUTOMATED METHOD 09/05/2024 4:58 PM [facility] Urobilinogen , Urine 1.0 0.2 - 1.0 mg/dL LAB URINALYSIS - AUTOMATED METHOD 09/05/2024 4:58 PM [facility] Bilirubin, Urine Negative Negative LAB URINALYSIS - AUTOMATED METHOD 09/05/2024 4:58 PM [facility] Blood, Urine Trace(A) Negative LAB URINALYSIS - AUTOMATED METHOD 09/05/2024 4:58 PM [facility] RBC, Urine 2.9 0 - 4 /HPF LAB URINALYSIS - AUTOMATED METHOD 09/05/2024 4:58 PM [facility] WBC, Urine 1,013.8(H) 0 - 4 /HPF LAB URINALYSIS - AUTOMATED METHOD 09/05/2024 4:58 PM [facility] Squamous Epithelial, Urine 31 0 - 60 /LPF LAB URINALYSIS - AUTOMATED METHOD 09/05/2024 4:58 PM [facility] Crystals, Urine Heavy Cystine crystals. /LPF 09/05/2024 4:58 PM [facility] Bacteria, Urine Many(A) Negative /HPF LAB URINALYSIS - AUTOMATED METHOD 09/05/2024 4:58 PM [facility] Hyaline Casts, Urine 5.4(H) 0 - 3 /LPF LAB URINALYSIS - AUTOMATED METHOD 09/05/2024 4:58 PM [facility] Urine Urine specimen obtained by clean catch procedure / Unknown Non-blood Collection / Unknown 09/05/2024 3:09 PM EST 09/05/2024 3:27 PM EST Antonio Myers MD LAB URINE ORDERABLES Final Resul t Performing Organization Address [facility] [place]/[facility]/ZIP Co de Phone Number [facility] [address] [place] [address], [place] [phone] * [facility] urine culture tube (09/05/2024 3:09 PM EST) Extra Tube Hold for add-ons. 09/05/2024 5:01 PM [facility] Comment:Auto resulted. Urine Urine specimen obtained by clean catch procedure / Unknown Non-blood Collection / Unknown 09/05/2024 3:09 PM EST 09/05/2024 3:27 PM EST Antonio Myers MD LAB URINE ORDERABLES Final Resul t Performing Organization Address City/[facility]/ZIP Co de Phone Number [facility] [address] [place] [address], [place] [phone] * (ABNORMAL) Culture urine (09/05/2024 3:09 PM EST) [facility] Signature Culture, Urine >100,000 CFU/mL Escherichia coli(A) DINO 09/07/2024 8:59 AM EST [facility] Urine Urine specimen obtained by clean catch procedure / Unknown Non-blood Collection / Unknown 09/05/2024 3:09 PM EST 09/05/2024 4:58 PM EST Narrative Organism Antibiotic Method Susceptibility Escherichia coli Amoxicillin/Clavulanate DINO <=2 ug/ml: Susceptible Escherichia coli Ampicillin/Sulbactam DINO <=2 ug/ml: Susceptible Escherichia coli Piperacillin/Tazobactam DINO <=4 ug/ml: Susceptible Escherichia coli Cefazolin (Urine) DINO <=1 ug/ml: Susceptible Escherichia coli Cefoxitin DINO <=4 ug/ml: Susceptible Escherichia coli Ceftazidime DINO <=0.5 ug/ml: Susceptible Escherichia coli Ceftriaxone DINO <=0.25 ug/ml: Susceptible Escherichia coli Cefepime DINO <=0.12 ug/ml: Susceptible Escherichia coli Meropenem DINO <=0.25 ug/ml: Susceptible Escherichia coli Amikacin DINO 2 ug/ml: Susceptible Escherichia coli Gentamicin DINO <=1 ug/ml: Susceptible Escherichia coli Ciprofloxacin DINO <=0.06 ug/ml: Susceptible Escherichia coli Levofloxacin DINO <=0.12 ug/ml: Susceptible Escherichia coli Nitrofurantoin DINO <=16 ug/ml: Susceptible Escherichia coli Trimethoprim/Sulfamethoxazole DINO <=20 ug/ml: Susceptible us Antonio Myers MD LAB MICROBIOLOGY - GENERAL ORDER TAMERA Final Result [facility] [address] [place] [address], [place] [phone] from Last 3 Months Insurance [employer] Care Teams Piece Cutter Relationship Specialty Start Date End Date Antonio Myers MD [address] [place] [phone] PCP - General Internal Medicine 08/27/24
--- OUTSIDE RECORDS SUMMARY | 2024-09-26 18:33 | XMS_ITS | Encounter Summary ---
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 [employer] Miner Name Role Phone Antonio Myers MD Primary Care Provider [phone] Encounter Details Date Type Department Care Team ([facility] st Contact Info) Description 09/19/2024 Telephone Internal Medicine - [place] [address] [facility] [address] [place] [phone] Antonio Myers MD [address] [facility] [address] [place] [address] Social History Tobacco Use Types Packs/Day Years Used Date Smoking Tobacco: Never Assessed Comments Unknown Sex and Gender Information Value Date Recorded Sex Assigned at Not on file Legal Sex Female 2:44 PM EST Gender Identity Female 08/28/2024 10:26 AM EST Sexual Orientation Not on file documented as of this encounter Progress Notes * Luz Brandon - 09/19/2024 12:55 PM EDT Referral Request: What insurance does the patient have today? [employer] Referrals cannot be processed if the insurance is not accurate. If the insurance listed above in red is NO BILLING INFORMATION FOUND FOR THIS ENCOUTNER The patients correct insurance must be obtained and registered in [facility] or their referral can not be processed. Is this a retro request? no. If yes for what date of service do you need the retro referral? not applicable Who is calling to request this referral? PATIENT If the caller is not the patient, what is their name? not applicable Ask the patient WHO referred them to this specialty: Patient saw at [facility] for the problem and was told if symptoms did not resolve or worsen they would refer them to this specialty FIRST and LAST NAME of SPECIALIST PATIENT is seeing: Dr. Neil Stanford What specialty is this? Kidney DIAGNOSIS Patient is being seen for (Not a body part or a procedure): Kidney Stone Have you seen this SPECIALIST for this PROBLEM/DX before? If YES, when? No Have you checked REVIEW or the APPT DESK to see if this referral has already been done or has visits left? yes Is this visit: Initial Visit Address of Specialist: [address] [place] [address] [address] [place] [address] Phone # of Specialist: [phone] Fax #: (if applicable): [phone] Does patient have an appointment scheduled?: no Date of appointment- (including a retro-request): Waiting on referral Is this appointment related to: kidney stone documented in this encounter Plan of Treatment Not on file documented as of this encounter Visit Diagnoses Not on filedocumented in this encounter Care Teams [employer] Miner Relationship Specialty Start Date End Date Antonio Myers MD [address] [place] [address] [address] [place] [address] PCP - General Internal Medicine 08/27/24 documented as of this encounter
== END 2024-09-26 15:28 | disposition home or self-care (01) ==
LOC: HO.HKAS 14:52
PROVIDERS: PCP Student in an Organized Health Care Education/Training Program; Referring Provider Internal Medicine; Visit Provider Internal Medicine Nephrology
DX: N20.0 Calculus of kidney (principal)
CPT/HCPCS: 99204

== ENCOUNTER → 2024-09-26 14:51 | Outpatient (BNVA) | payer OTHER, SELFPAY | PROVIDERS: PCP Student in an Organized Health Care Education/Training Program; Referring Provider Internal Medicine; Visit Provider Internal Medicine Nephrology ==